=== PATIENT | male | born 1970 | race African-American/Black ===

== ENCOUNTER 2018-07-05 06:37 | Inpatient (IN) | payer OTHER ==
[~2018-07-05] VITALS: Ht 167.6 cm; Wt 77.1 kg
[2018-07-05 07:31] LABS: BASOPHILS % 0.9 % (0.0-2.0); HEMATOCRIT. 42.4 % (42.0-52.0); HEMOGLOBIN. 13.7 g/dL (14.0-18.0); LYMPHOCYTES % 12.8 % (20.0-50.0); MEAN CORPUSCULAR HEMOGLOBIN 26.3 pg (28.0-32.0); MEAN CORPUSCULAR VOLUME 81.3 fL (80.0-94.0); MONOCYTES % 4.7 % (2.0-8.0); NEUTROPHILS % 80.6 % (40.0-76.0); PLATELET 253 x1000/uL (130-400); RED BLOOD CELL COUNT 5.21 mill/uL (4.7-6.1); RED CELL DISTRIBUTION WIDTH 13.3 % (11.6-14.6)
[2018-07-05 07:41] LABS: CHLORIDE 103 mEq/L (98-107)
[2018-07-05 07:45] LABS: ETHANOL BLOOD < 10 mg/dL
[2018-07-05] MEDS ORDERED: LORAZEPAM 2MG/ML CPJ ONE (08:24)
[2018-07-05] MEDS ORDERED: LEVETIRACETAM 1000MG/100ML 100 ML IV ONE (08:30)
[2018-07-05] MEDS ORDERED: LORAZEPAM 2MG/ML CPJ IV ONE (08:30)
[2018-07-05 09:32] LABS: *AMPHETAMINES SCREEN URINE NEGATIVE (NEGATIVE); *BARBITURATES SCREEN URINE NEGATIVE (NEGATIVE); *BENZODIAZEPINES SCREEN URINE NEGATIVE (NEGATIVE)
[2018-07-05 09:33] LABS: *COCAINE SCREEN URINE NEGATIVE (NEGATIVE); METHADONE URINE SCREEN NEGATIVE (NEGATIVE)
[2018-07-05 09:34] LABS: CANNABINOID URINE SCREEN PRESUMTIVE POSITIVE (NEGATIVE); OPIATES URINE SCREEN NEGATIVE (NEGATIVE)
[2018-07-05 09:36] LABS: PHENCYCLIDINE URINE SCREEN NEGATIVE (NEGATIVE)
[2018-07-05] MEDS ORDERED: ACETAMINOPHEN 325MG TABLET PO PRN (14:00)
[2018-07-05] MEDS ORDERED: IPRATROPIUM/ALBUTEROL 0.5-3(2.5)MG/3ML NEB INH PRN (14:00)
[2018-07-05] MEDS ORDERED: CEFTRIAXONE 1 G PREMIX 50 ML IV SCH ×3 (14:00→20:00)
[2018-07-05] MEDS ORDERED: ONDANSETRON HCL 4MG/2ML INJ IV PRN (14:00)
[2018-07-05] MEDS ORDERED: LORAZEPAM 2MG/ML CPJ IV PRN (14:00)
[2018-07-05] MEDS ORDERED: GUAIFENESIN 200MG/10ML SUGAR FREE UDC PO PRN (14:00)
[2018-07-05] MEDS ORDERED: CLONIDINE 0.1MG TABLET PO PRN (14:00)
[2018-07-05] MEDS ORDERED: DOCUSATE SODIUM 100MG CAPSULE PO PRN (14:00)
[2018-07-05] MEDS ORDERED: MAGNESIUM/ALUMINUM HYDROXIDE/SIMETHICONE 30ML UDC PO PRN (14:00)
[2018-07-05 14:43] LABS: VITAMIN B12 SERUM 414 pg/mL (211-911)
[2018-07-05] MEDS ORDERED: LEVETIRACETAM 500MG PREMIX 100 ML IV SCH (15:47)
[2018-07-05] MEDS ORDERED: DEXTROSE 50% WATER 50ML SYRINGE IV PRN ×2 (18:30)
[2018-07-05 20:00] VITALS: BP 150/93
[2018-07-05] MEDS: INSULIN LISPRO 100 UNITS/ML SUBCUT SCH (20:53)
[2018-07-05] MEDS: SODIUM CHLORIDE 0.9% 1,000 ML IV SCH (20:56)
[2018-07-05] MEDS: BLOOD SUGAR DIAGNOSTIC STRIP TEST SCH (21:00)
[2018-07-05] MEDS: LEVETIRACETAM 500MG in SODIUM CHLORIDE 0.9% 100ML IV SCH (21:47)
[2018-07-05 21:59] VITALS: BP 150/93
[2018-07-06] VITALS: BP 108/63
[2018-07-06 04:00] VITALS: BP 115/74
[2018-07-06] MEDS: BLOOD SUGAR DIAGNOSTIC STRIP TEST SCH ×3 (05:56→17:31)
[2018-07-06] MEDS: INSULIN LISPRO 100 UNITS/ML SUBCUT SCH ×3 (05:56→17:45)
[2018-07-06] MEDS ORDERED: OMEPRAZOLE 20MG CAPSULE EXTENDED RELEASE PO SCH (07:10)
[2018-07-06 08:00] VITALS: BP 125/77
[2018-07-06] MEDS: LEVETIRACETAM 500MG in SODIUM CHLORIDE 0.9% 100ML IV SCH (09:07)
[2018-07-06] MEDS: SODIUM CHLORIDE 0.9% 1,000 ML IV SCH (09:08)
[2018-07-06] MEDS: METFORMIN HCL 500MG TABLET PO SCH ×3 (09:08→17:45)
[2018-07-06 10:37] LABS: CLARITY URINE CLEAR (CLEAR); COLOR URINE YELLOW (YELLOW); KETONES URINE 1+ (NEGATIVE); LEUKOCYTE ESTERASE URINE NEGATIVE (NEGATIVE); NITRITE URINE NEGATIVE (NEGATIVE); OCCULT BLOOD URINE NEGATIVE (NEGATIVE); PROTEIN URINE 1+ (NEGATIVE); UROBILINOGEN URINE 0.2 E.U./dL (0.2-1.0)
[2018-07-06 11:42] LABS: CHLORIDE 107 mEq/L (98-107)
[2018-07-06 11:51] LABS: LDL CHOLESTEROL 114 mg/dL (5-100)
[2018-07-06 11:53] LABS: BASOPHILS % 0.6 % (0.0-2.0); EOSINOPHILS % 0.8 % (0.0-5.0); HDL CHOLESTEROL 27 mg/dL (40-59); HEMOGLOBIN. 12.3 g/dL (14.0-18.0); MEAN CORPUSCULAR HEMOGLOBIN 26.2 pg (28.0-32.0); MEAN CORPUSCULAR VOLUME 80.9 fL (80.0-94.0); MONOCYTES % 6.5 % (2.0-8.0); NEUTROPHILS % 74.1 % (40.0-76.0); PLATELET 241 x1000/uL (130-400); RED CELL DISTRIBUTION WIDTH 13.1 % (11.6-14.6)
[2018-07-06 12:00] VITALS: BP 120/77
[2018-07-06 16:00] VITALS: BP 126/76
[2018-07-06 19:01] VITALS: BP 126/76
[2018-07-08 09:06] LABS: FOLATE HEMATOCRIT 38.5 % (37.5-51.0)
[2018-07-08 14:17] LABS: FOLATE HEMOLYSATE 396.4 ng/mL (Not Estab.); FOLATE RBC 1030 ng/mL (>498)
== END 2018-07-06 20:05 | disposition home or self-care (01) | DRG 53 ==
LOC: ER 06:37 → 8WST 09:41 → EDBEDREQ 09:45 → ENRESERV 16:33
PROVIDERS: ADMIT Internal Medicine; ATTEND Internal Medicine
DX: G40.409 Other generalized epilepsy and epileptic syndromes, not intractable, without status epilepticus (principal); E87.8 Other disorders of electrolyte and fluid balance, not elsewhere classified; E11.65 Type 2 diabetes mellitus with hyperglycemia; R00.0 Tachycardia, unspecified; D72.829 Elevated white blood cell count, unspecified; F32.9 Major depressive disorder, single episode, unspecified; F17.210 Nicotine dependence, cigarettes, uncomplicated; Z83.3 Family history of diabetes mellitus
CPT/HCPCS: 36415; 71045; 80061; 80305; 82140; 82542; 82607; 82747; 82962; 83036; 84443; 85014; 93970; 96365; 96375; 99285; G0482; J0696; J1815; J1953; J2060; J7050

== ENCOUNTER 2023-09-10 22:11 | Emergency (ER) | payer MEDICAID, OTHER ==
[~2023-09-10] VITALS: Ht 175.3 cm; Wt 64.0 kg
[2023-09-10 22:22] VITALS: TEMP 98.9; O2SAT 100
[2023-09-10 23:03] LABS: HEMATOCRIT. 35.2 % (42.0-52.0); HEMOGLOBIN. 11.8 g/dL (14.0-18.0); MEAN CORPUSCULAR HGB CONC 33.4 g/dL (31.0-37.0); MEAN CORPUSCULAR VOLUME 80.7 fL (80.0-94.0); MEAN PLATELET VOLUME 9.1 fl (7.4-10.4); MONOCYTES % 5.6 % (2.0-8.0); NEUTROPHILS % 78.4 % (40.0-76.0); PLATELET 288 x1000/uL (130-400); RED BLOOD CELL COUNT 4.36 mill/uL (4.7-6.1); RED CELL DISTRIBUTION WIDTH 13.3 % (11.6-14.6); WHITE BLOOD COUNT 10.6 x1000/uL (4.5-11.0)
[2023-09-10 23:20] LABS: ALBUMIN 4.3 g/dL (3.2-4.8); CALCIUM 8.9 mg/dL (8.7-10.4); CARBON DIOXIDE 26 mEq/L (21-32); CHLORIDE 105 mEq/L (98-107); GLUCOSE 228 mg/dL (70-105); POTASSIUM 4.8 mEq/L (3.5-5.1); PROTEIN TOTAL 7.4 g/dL (6.0-8.3); SODIUM 137 mEq/L (136-145); UREA NITROGEN BLOOD 19 mg/dL (9-23)
[2023-09-10 23:21] LABS: ALANINE AMINOTRANSFERASE 13 IU/L (10-49); ASPARTATE AMINOTRANSFERASE 25 IU/L (<34); BILIRUBIN TOTAL 0.4 mg/dL (0.1-1.0); ETHANOL BLOOD < 10 mg/dL (<10); TROPONIN I HIGH SENSITIVITY 22 ng/L (3.0-53)
[2023-09-11 00:35] LABS: PARTIAL THROMBOPLASTIN TIME 24.7 sec (23.4-31.0); PROTHROMBIN TIME 10.9 sec (9.6-11.0)
[2023-09-11 00:49] LABS: AMMONIA < 17 uMol/L (<32)
[2023-09-11 02:17] LABS: CLARITY URINE CLEAR (CLEAR); COLOR URINE YELLOW (YELLOW); GLUCOSE URINE 3+ (NEGATIVE); KETONES URINE NEGATIVE (NEGATIVE); LEUKOCYTE ESTERASE URINE NEGATIVE (NEGATIVE); NITRITE URINE NEGATIVE (NEGATIVE); OCCULT BLOOD URINE NEGATIVE (NEGATIVE); PROTEIN URINE NEGATIVE (NEGATIVE); UROBILINOGEN URINE 0.2 E.U./dL (0.2-1.0)
[2023-09-11 02:42] LABS: BACTERIA URINE NONE SEEN; RBC URINE NONE SEEN /hpf (0-2); SQUAMOUS EPITHELIAL CELL URINE NONE SEEN /lpf (RARE/1+); WBC URINE NONE SEEN /hpf (0-2)
[2023-09-11 02:50] LABS: *AMPHETAMINES SCREEN URINE NEGATIVE (NEGATIVE); *BARBITURATES SCREEN URINE NEGATIVE (NEGATIVE); *BENZODIAZEPINES SCREEN URINE NEGATIVE (NEGATIVE); *COCAINE SCREEN URINE NEGATIVE (NEGATIVE); CANNABINOID URINE SCREEN NEGATIVE (NEGATIVE); ECSTASY MDMA SCREEN URINE NEGATIVE (NEGATIVE); METHADONE URINE SCREEN Neg (NEGATIVE); OPIATES URINE SCREEN NEGATIVE (NEGATIVE); PHENCYCLIDINE URINE SCREEN NEGATIVE (NEGATIVE)
[2023-09-11 05:08] VITALS: BP 136/86; PULSE 82; RESP 15
== END 2023-09-11 06:57 | disposition left against medical advice (07) ==
LOC: ER 22:11
DX: R55 Syncope and collapse (principal); E11.9 Type 2 diabetes mellitus without complications; Z86.59 Personal history of other mental and behavioral disorders
CPT/HCPCS: 36415; 71045; 73030; 80053; 80305; 80320; 81003; 82140; 82962; 83605; 83880; 84443; 84484; 85025; 86850; 86900; 93005; 99285; G0480

== ENCOUNTER 2024-01-27 18:04 | Emergency (ER) | payer OTHER ==
[~2024-01-27] VITALS: Ht 172.7 cm; Wt 68.0 kg
[2024-01-27] MEDS ORDERED: aspirin (18:11)
[2024-01-27] MEDS ORDERED: amlodipine (18:11)
[2024-01-27] MEDS ORDERED: hydralazine (18:11)
[2024-01-27] MEDS ORDERED: buspar (18:11)
[2024-01-27] MEDS ORDERED: atorvastatin (18:11)
[2024-01-27] MEDS ORDERED: metoprolol (18:11)
[2024-01-27 18:12] VITALS: TEMP 98.7; O2SAT 100
[2024-01-27 18:53] LABS: BASOPHILS % 1.1 % (0.0-2.0); EOSINOPHILS % 0.9 % (0.0-5.0); HEMATOCRIT. 38.4 % (42.0-52.0); HEMOGLOBIN. 12.4 g/dL (14.0-18.0); LYMPHOCYTES % 10.7 % (20.0-50.0); MEAN CORPUSCULAR HEMOGLOBIN 26.3 pg (28.0-32.0); MEAN CORPUSCULAR HGB CONC 32.2 g/dL (31.0-37.0); MEAN CORPUSCULAR VOLUME 81.8 fL (80.0-94.0); MEAN PLATELET VOLUME 9.7 fl (7.4-10.4); MONOCYTES % 4.1 % (2.0-8.0); NEUTROPHILS % 83.2 % (40.0-76.0); PLATELET 244 x1000/uL (130-400); RED BLOOD CELL COUNT 4.69 mill/uL (4.7-6.1); RED CELL DISTRIBUTION WIDTH 13.6 % (11.6-14.6); WHITE BLOOD COUNT 10.6 x1000/uL (4.5-11.0)
[2024-01-27 18:54] LABS: CHLORIDE 109 mEq/L (98-107); POTASSIUM 3.7 mEq/L (3.5-5.1); SODIUM 140 mEq/L (136-145)
[2024-01-27 18:55] LABS: CARBON DIOXIDE 23 mEq/L (21-32)
[2024-01-27 18:56] LABS: CALCIUM 9.3 mg/dL (8.7-10.4)
[2024-01-27 19:00] LABS: CREATININE 1.9 mg/dL (0.6-1.3); GLUCOSE 182 mg/dL (70-105); UREA NITROGEN BLOOD 17 mg/dL (9-23)
[2024-01-27 19:02] LABS: TROPONIN I HIGH SENSITIVITY 37 ng/L (3.0-53)
[2024-01-27 19:55] VITALS: BP 185/100; PULSE 102; RESP 24; O2SAT 98
== END 2024-01-27 20:15 | disposition home or self-care (01) ==
LOC: ER 18:04
DX: I10 Essential (primary) hypertension (principal); R41.82 Altered mental status, unspecified; Z86.73 Personal history of transient ischemic attack (TIA), and cerebral infarction without residual deficits; Z79.899 Other long term (current) drug therapy
CPT/HCPCS: 80048; 85025; 84484; 36415; 71045; 70450; 93005; 99285; Z7610